=== PATIENT | female | born 1940 | race Caucasian/White ===

== ENCOUNTER → 2017-08-06 | Outpatient (CLI) | payer OTHER ==
[~2017-08-06] MED LIST: ACET325 PO; ASPI81CH PO; Adult Low Dose81 MG PO; CEFP200 PO; CEPH500 PO; CHOL10002 PO; CIPR500; CIPR500 PO; CIPRO500 MG PO; CYAN500 PO; Cipro500 MG PO; Coumadin5 MG PO; DOCU100; DOCU100 PO; ERGO400 PO; ERYT250 PO; FERR325 PO; FISH OIL 1,0001 EAC1 PO; FISH1000 PO; FURO20 PO; FURO40 PO; GABA100; GRALISE600 MG PO; HYDCHL25 PO; HYDR1TAB94 PO; Hydrocodone-Ap1 EA23; Inderal 20 mg T20 MG PO; K-Dur20 MEQ PO; MAGN84 PO; Macrobid 100 M100 MG PO; Mag-Tab Sr84 MG PO; NAPR500 PO; NITR100CA PO; NYSTRITC TOP; OMEP20ER PO; Omeprazole20 M1; Omeprazole20 M1 PO; POTA8; POTA8 PO; POTCHL20ER PO; Pedi-Dri 100,0060 GM TOP; SYNTHROID25 MCG PO; Synthroid25 MCG PO; TRAM50 PO; WARF6 PO; [UNRECOGNIZED DRUG - OTHER] PO
== END | disposition home or self-care (01) ==
LOC: LAB SHORT 14:21 → LAB EV 14:21
DX: N39.0 Urinary tract infection, site not specified (principal)
CPT/HCPCS: 87086

== ENCOUNTER 2017-10-03 10:26 | Day surgery (SDC) | payer OTHER ==
[~2017-10-03 10:26] MED LIST changes: -CEFP200 PO; -CYAN500 PO; -FISH OIL 1,0001 EAC1 PO; -K-Dur20 MEQ PO; -Mag-Tab Sr84 MG PO; -NYSTRITC TOP
== END 2017-10-03 11:08 | disposition home or self-care (01) ==
LOC: ORSCSDS 10:26
DX: R13.10 Dysphagia, unspecified (principal); Z53.9 Procedure and treatment not carried out, unspecified reason

== ENCOUNTER 2017-12-06 11:40 | Day surgery (SDC) | payer OTHER ==
[~2017-12-06] VITALS: Ht 177.8 cm; Wt 95.2 kg
== END 2017-12-06 13:45 | disposition home or self-care (01) ==
LOC: ORSCSDS 11:40
PROVIDERS: Internal Medicine Gastroenterology
PROC: 0D758ZZ Dilation of Esophagus, Via Natural or Artificial Opening Endoscopic (ICD-10-PCS; principal; 2017-12-06 13:15)
PROC: 0DB68ZX Excision of Stomach, Via Natural or Artificial Opening Endoscopic, Diagnostic (ICD-10-PCS; principal; 2017-12-06 13:15)
DX: R13.10 Dysphagia, unspecified (principal); K22.2 Esophageal obstruction; K22.8 Other specified diseases of esophagus; K22.4 Dyskinesia of esophagus; I10 Essential (primary) hypertension; E03.9 Hypothyroidism, unspecified; Z95.0 Presence of cardiac pacemaker; Z79.82 Long term (current) use of aspirin; Z79.899 Other long term (current) drug therapy; E66.9 Obesity, unspecified
CPT/HCPCS: 88305; 88342; C1726; J2250; J7120

== ENCOUNTER → 2018-04-09 | Outpatient (CLI) | payer OTHER ==
[2018-04-09 17:38] LABS: Source, Urine Catheter
[2018-04-09 18:38] LABS: Appearance, Urine Hazy (Clear); Bilirubin, Urine Neg (Neg); Blood, Urine 4+ (Neg); Color, Urine Yellow (P-Yellow); Glucose Qualitative, Urine Neg (Neg); Ketones, Urine Neg (Neg); Leukocyte Esterase, Urine 3+ (Neg); Nitrite, Urine Neg (Neg); Protein, Urine 3+ (Neg); Specific Gravity, Urine 1.005 (1.003-1.022); Urobilinogen, Urine NORM (Normal)
[2018-04-09 18:46] LABS: Red Blood Cells, Urine TNTC /hpf (0-2); White Blood Cells, Urine TNTC /hpf (0-5)
[2018-04-09 18:47] LABS: Bacteria Many /hpf; Squamous Epithelial Cells Few /hpf (Few)
== END | disposition home or self-care (01) ==
LOC: LAB SHORT 17:36 → LAB HH 17:36
PROVIDERS: Hospitalist
DX: Z46.6 Encounter for fitting and adjustment of urinary device (principal)
CPT/HCPCS: 81001; 87077; 87086; 87186

== ENCOUNTER 2018-05-20 11:47 | Emergency (ER) | payer OTHER ==
[~2018-05-20] VITALS: Ht 177.8 cm; Wt 95.2 kg
[~2018-05-20 11:47] MED LIST changes: +FISH OIL 1,0001 EAC1 PO
[2018-05-20 12:41] LABS: BASOPHILS ABSOLUTE AUTO 0.05 K/mm3 (0.00-0.23); BASOPHILS PERCENT AUTO 1 % (0-2); EOSINOPHILS ABSOLUTE AUTO 0.27 K/mm3 (0.00-0.68); EOSINOPHILS PERCENT AUTO 4 % (0-6); Hematocrit 41.7 % (33.0-51.0); Hemoglobin 13.7 g/dL (11.5-16.0); IMMATURE GRAN ABSOLUTE AUTO 0.01 K/mm3 (0.00-0.10); IMMATURE GRAN PERCENT AUTO 0 % (0-1); LYMPHOCYTES ABSOLUTE AUTO 1.59 K/mm3 (0.84-5.20); LYMPHOCYTES PERCENT AUTO 24 % (21-46); MONOCYTES ABSOLUTE AUTO 0.58 K/mm3 (0.16-1.47); MONOCYTES PERCENT AUTO 9 % (4-13); Mean Corpuscular HGB 29.8 pg (26.0-34.0); Mean Corpuscular HGB Conc 32.9 g/dL (31.5-36.5); Mean Corpuscular Volume 91 fL (80-100); NEUTROPHILS ABSOLUTE AUTO 4.21 K/mm3 (1.96-9.15); NEUTROPHILS PERCENT AUTO 63 % (41-73); Platelet Count 277 K/mm3 (150-400); RDW Standard Deviation 46.5 fL (35.1-46.3); White Blood Cell Count 6.71 K/mm3 (4.00-11.30)
[2018-05-20 12:55] LABS: Alanine Aminotransfer (ALT/SGP 16 U/L (12-78); Albumin, Blood 2.6 g/dL (3.4-5.0); Albumin/Globulin Ratio 0.6 (0.8-1.8); Alk Phos 97 U/L (50-136); Anion Gap 6 mmol/L (6-16); Aspartate Aminotrans (AST/SGOT 31 U/L (12-37); Bilirubin, Total 0.9 mg/dL (0.1-1.0); Blood Urea Nitrogen 8 mg/dL (8-24); Bun/Creatinine Ratio 12.4 (12.0-20.0); CO2, Blood 30 mmol/L (21-32); Calcium, Blood 8.5 mg/dL (8.5-10.1); Chloride, Blood 102 mmol/L (98-108); Creatinine, Blood 0.65 mg/dL (0.40-1.00); Globulin, Blood 4.1 g/dL (2.2-4.0); Glomerular Filtration Rate >60 (60-); Glucose, Blood 111 mg/dL (70-99); Potassium, Blood 2.9 mmol/L (3.5-5.5); Sodium, Blood 138 mmol/L (136-145); Total Protein, Blood 6.7 g/dL (6.4-8.2)
[2018-05-20 13:29] LABS: Source, Urine Catheter
[2018-05-20 14:01] LABS: Bilirubin, Urine Neg (Neg); Blood, Urine 5+ (Neg); Glucose Qualitative, Urine Neg (Neg); Ketones, Urine Neg (Neg); Leukocyte Esterase, Urine 3+ (Neg); Nitrite, Urine Pos (Neg); Protein, Urine 2+ (Neg); Specific Gravity, Urine 1.015 (1.003-1.022); Urobilinogen, Urine 1+ (Normal); pH, Urine 6.5 (5.0-8.0)
[2018-05-20 14:22] LABS: Appearance, Urine Turbid (Clear); Color, Urine Yellow (P-Yellow)
[2018-05-20 14:23] LABS: Bacteria Many /hpf; Squamous Epithelial Cells Many /hpf (Few); White Blood Cells, Urine 50-100 /hpf (0-5)
[2018-05-20] MEDS ORDERED: K-Dur20 MEQ PO (15:57)
[2018-05-20] MEDS ORDERED: CEFP200 PO (15:57)
[2018-05-21] MEDS ORDERED: HYDR1TAB94 PO (16:03)
[2018-05-21] MEDS ORDERED: GRALISE600 MG PO (16:04)
[2018-05-21] MEDS ORDERED: Mag-Tab Sr84 MG PO (16:04)
[2018-05-21] MEDS ORDERED: NYSTRITC TOP (16:05)
[2018-05-21] MEDS ORDERED: CYAN500 PO (16:05)
== END 2018-05-20 18:30 | disposition home or self-care (01) ==
LOC: ER 11:47
PROVIDERS: Emergency Medicine
DX: N39.0 Urinary tract infection, site not specified (principal); E87.6 Hypokalemia; E86.0 Dehydration; I95.9 Hypotension, unspecified; Z66 Do not resuscitate; Z88.8 Allergy status to other drugs, medicaments and biological substances; Z79.899 Other long term (current) drug therapy; Z79.891 Long term (current) use of opiate analgesic; Z79.82 Long term (current) use of aspirin
CPT/HCPCS: 36415; 51702; 80053; 81001; 83605; 85025; 87086; 96361; 96365; 96366; 99283-25; J0696; J7030

== ENCOUNTER → 2018-08-27 | Outpatient (CLI) | payer OTHER ==
[~2018-08-27] MED LIST changes: +CEFP200 PO; +CYAN500 PO; +K-Dur20 MEQ PO; +Mag-Tab Sr84 MG PO; +NYSTRITC TOP
== END | disposition home or self-care (01) ==
LOC: LAB SHORT 12:41 → LAB EV 12:41
DX: L03.114 Cellulitis of left upper limb (principal)
CPT/HCPCS: 87070; 87077; 87147; 87186; 87205

== ENCOUNTER → 2018-11-14 | Outpatient (CLI) | payer OTHER ==
[~2018-11-14] MED LIST changes: +ACET500 PT; +ASPI81CH PT; +ATOR10 PT; -CYAN500 PO; +CYAN500 PT; -DOCU100 PO; +DOCU100 PT; -ERGO400 PO; +ERGO400 PT; +FERSU300 PT; +FURO40 PT; +GRALISE600 MG PT; +HYDR1TAB94 PT; -Inderal 20 mg T20 MG PO; +Inderal 20 mg T20 MG PT; +LORA.5 PT; +Magnesium30 MG PT; +Omeprazole20 M1 PT; +POTA8 PT; -SYNTHROID25 MCG PO; +SYNTHROID25 MCG PT
== END ==
LOC: LAB EV 14:59 → LAB SHORT 14:59
DX: I82.622 Acute embolism and thrombosis of deep veins of left upper extremity (principal)
CPT/HCPCS: 87070; 87075; 87077; 87147; 87186; 87205

== ENCOUNTER 2019-01-30 20:27 | Inpatient (IN) | payer OTHER ==
[~2019-01-30] VITALS: Ht 175.3 cm; Wt 84.6 kg
[~2019-01-30 20:27] MED LIST changes: -ACET500 PT; -ASPI81CH PT; -ATOR10 PT; -FERSU300 PT; -LORA.5 PT; -Magnesium30 MG PT
[2019-01-30 20:47] LABS: Source, Urine Clean Catch
[2019-01-30 20:55] LABS: Appearance, Urine Cloudy (Clear); Blood, Urine 3+ (Neg); Color, Urine Amber (P-Yellow); Glucose Qualitative, Urine Neg (Neg); Ketones, Urine 1+ (Neg); Leukocyte Esterase, Urine 3+ (Neg); Nitrite, Urine Neg (Neg); Protein, Urine 3+ (Neg); Urobilinogen, Urine 2+ (Normal)
[2019-01-30 21:03] LABS: Bilirubin, Urine 1+ (Neg)
[2019-01-30 21:07] LABS: White Blood Cells, Urine 25-50 /hpf (0-5)
[2019-01-30 21:12] LABS: Amorphous Mod (0-Heavy); Bacteria Many /hpf; Squamous Epithelial Cells Few /hpf (Few)
[2019-01-30 21:36] LABS: BASOPHILS ABSOLUTE AUTO 0.01 K/mm3 (0.00-0.23); BASOPHILS PERCENT AUTO 0 % (0-2); EOSINOPHILS PERCENT AUTO 0 % (0-6); Hematocrit 32.1 % (33.0-51.0); Hemoglobin 11.2 g/dL (11.5-16.0); IMMATURE GRAN ABSOLUTE AUTO 0.04 K/mm3 (0.00-0.10); IMMATURE GRAN PERCENT AUTO 0 % (0-1); LYMPHOCYTES ABSOLUTE AUTO 1.44 K/mm3 (0.84-5.20); LYMPHOCYTES PERCENT AUTO 11 % (21-46); MONOCYTES ABSOLUTE AUTO 0.84 K/mm3 (0.16-1.47); MONOCYTES PERCENT AUTO 7 % (4-13); Mean Corpuscular HGB 32.7 pg (26.0-34.0); Mean Corpuscular HGB Conc 34.9 g/dL (31.5-36.5); Mean Corpuscular Volume 94 fL (80-100); NEUTROPHILS ABSOLUTE AUTO 10.57 K/mm3 (1.96-9.15); NEUTROPHILS PERCENT AUTO 82 % (41-73); Platelet Count 392 K/mm3 (150-400); RDW Coefficient Variation 16.1 % (11.7-14.2); RDW Standard Deviation 54.5 fL (35.1-46.3); Red Blood Cell Count 3.43 M/mm3 (3.80-5.20)
[2019-01-30 21:56] LABS: Alanine Aminotransfer (ALT/SGP 32 U/L (12-78); Albumin, Blood 2.2 g/dL (3.4-5.0); Albumin/Globulin Ratio 0.6 (0.8-1.8); Alk Phos 132 U/L (50-136); Anion Gap 12 mmol/L (6-16); Aspartate Aminotrans (AST/SGOT 44 U/L (12-37); Blood Urea Nitrogen 18 mg/dL (8-24); CO2, Blood 29 mmol/L (21-32); Calcium, Blood 8.1 mg/dL (8.5-10.1); Chloride, Blood 96 mmol/L (98-108); Creatinine, Blood 0.49 mg/dL (0.40-1.00); Globulin, Blood 3.5 g/dL (2.2-4.0); Glomerular Filtration Rate >60 (60-); Glucose, Blood 121 mg/dL (70-99); Potassium, Blood 2.9 mmol/L (3.5-5.5); Sodium, Blood 137 mmol/L (136-145); Total Protein, Blood 5.7 g/dL (6.4-8.2)
[2019-01-31 05:30] LABS: BASOPHILS ABSOLUTE AUTO 0.02 K/mm3 (0.00-0.23); BASOPHILS PERCENT AUTO 0 % (0-2); EOSINOPHILS PERCENT AUTO 0 % (0-6); Hematocrit 31.4 % (33.0-51.0); Hemoglobin 10.8 g/dL (11.5-16.0); IMMATURE GRAN ABSOLUTE AUTO 0.09 K/mm3 (0.00-0.10); IMMATURE GRAN PERCENT AUTO 1 % (0-1); LYMPHOCYTES ABSOLUTE AUTO 1.38 K/mm3 (0.84-5.20); LYMPHOCYTES PERCENT AUTO 9 % (21-46); MONOCYTES ABSOLUTE AUTO 0.88 K/mm3 (0.16-1.47); MONOCYTES PERCENT AUTO 6 % (4-13); Mean Corpuscular HGB 32.9 pg (26.0-34.0); Mean Corpuscular HGB Conc 34.4 g/dL (31.5-36.5); Mean Corpuscular Volume 96 fL (80-100); Mean Platelet Volume 10.3 fL (9.1-12.4); NEUTROPHILS ABSOLUTE AUTO 12.54 K/mm3 (1.96-9.15); NEUTROPHILS PERCENT AUTO 84 % (41-73); Platelet Count 348 K/mm3 (150-400); RDW Coefficient Variation 16.2 % (11.7-14.2); RDW Standard Deviation 57.4 fL (35.1-46.3); Red Blood Cell Count 3.28 M/mm3 (3.80-5.20); White Blood Cell Count 14.91 K/mm3 (4.00-11.30)
--- NOTE | 2019-01-31 05:59 | NUR ---
SHIFT SUMMARY PT NEW ED ADMIT THIS EVENING. UTI PRESENT. PT CAME UP WITH CHRONIC MERCER CATHETER. URINE VERY DARK, CLOUDY, AND FOUL SMELLING. OLD CATHETER PULLED AND NEW ONE INSERTED WITH SOME DIFFICULTY, VP MARKETING SERVICES AND SKIN JUANITO JOHNS INSERTED 18 SLOVAK MERCER CATHETER. VERY LITTLE OUTPUT. BLADDER SCAN READING 15 ML. SPOKE WITH PT'S SON NANDA ON THE PHONE. HE EXPLAINED THAT THIS WAS NORMAL FOR PT. FLUSHED MERCER OUT MULTIPLE TIMES WELL TO ENSURE IT WASN'T CLOGGED UP. SOME CLOTS OUT IN URINE WELL. PT'S SPEECH NONSENSICAL AT TIMES. OTHER TIMES PT ABLE TO ANSWER SIMPLE QUESTIONS APPROPRIATELY. PT'S SON REPORTED THAT THIS HAS BEEN GOING ON FOR SEVERAL WEEKS AND THAT SHE HAS BEEN DECLINING OVER THE COURSE OF THIS TIME. PT'S COCCYX EXCORIATED, TWO SMALL OPEN SORES ON EACH SIDE OF BUTTUCKS. PICTURES TAKEN AND PLACED IN CHART. BRUISING ON LEFT LABIA MAJORA. SON REPORTS HE BELIEVES THIS IS FROM DOGS JUMPING ON PT. PT DENIES PAIN WHEN ASKED. HOWEVER PT MOANS FREQUENTLY FOR UNKNOWN REASON. PT DID NOT SLEEP WELL THIS EVENING. VSS. WILL CONTINUE TO MONITOR AND REPORT TO DAY RN.
[2019-01-31 06:05] LABS: Anion Gap 11 mmol/L (6-16); Blood Urea Nitrogen 16 mg/dL (8-24); Bun/Creatinine Ratio 39.3 (12.0-20.0); CO2, Blood 25 mmol/L (21-32); Chloride, Blood 102 mmol/L (98-108); Creatinine, Blood 0.41 mg/dL (0.40-1.00); Glomerular Filtration Rate >60 (60-); Glucose, Blood 117 mg/dL (70-99); Potassium, Blood 3.7 mmol/L (3.5-5.5); Sodium, Blood 138 mmol/L (136-145)
--- NOTE | 2019-01-31 16:37 | NUR ---
PT IS AWAKE ORIENTED TO SELF, THE PT TRIES TO RESPOND VERBALY TO SOME SIMPLE QUESTIONS, HOWEVER SHE IS HARD TO UNDERSTAND, THE PT MOANS CONTINUOSLY, THE PT WAS MEDICATED FOR PAIN X1 TODAY WITH TYLENOL PER RECTUM, THE PT SCRATHCHS AT HER THROAT CONTINUOSLY AND AT ONE TIME TODAY REPORTED TO THE PLUCK SEPARATOR VERBALY THAT SHE HAD PAIN IN HER THROAT, A CALL WAS MADE TO DR. TORO AND AN US WAS ORDERED AND PERFORMED, ATTEMPTS WERE MADE T/O THE DAY TO FEED AND OFFER LIQUIDS TO THE PT, HOWEVER SHE PUSHED ALL ATTEMPTS AWAY, SHE ALSO DECLINED ALL ORAL MEDICATION, THE PT APPEARS TO BE BREATHING EASILY ON RA AT THIS TIME, CALL LIGHT IN REACH, WILL CONTINUE TO MONITOR AND ASSESS FOR CHANGES
[2019-02-01 04:33] LABS: BASOPHILS ABSOLUTE AUTO 0.01 K/mm3 (0.00-0.23); BASOPHILS PERCENT AUTO 0 % (0-2); EOSINOPHILS ABSOLUTE AUTO 0.01 K/mm3 (0.00-0.68); EOSINOPHILS PERCENT AUTO 0 % (0-6); Hematocrit 30.8 % (33.0-51.0); Hemoglobin 10.7 g/dL (11.5-16.0); IMMATURE GRAN ABSOLUTE AUTO 0.06 K/mm3 (0.00-0.10); IMMATURE GRAN PERCENT AUTO 1 % (0-1); LYMPHOCYTES ABSOLUTE AUTO 1.68 K/mm3 (0.84-5.20); LYMPHOCYTES PERCENT AUTO 13 % (21-46); MONOCYTES PERCENT AUTO 5 % (4-13); Mean Corpuscular HGB 33.1 pg (26.0-34.0); Mean Corpuscular HGB Conc 34.7 g/dL (31.5-36.5); Mean Corpuscular Volume 95 fL (80-100); Mean Platelet Volume 10.1 fL (9.1-12.4); NEUTROPHILS ABSOLUTE AUTO 10.47 K/mm3 (1.96-9.15); NEUTROPHILS PERCENT AUTO 81 % (41-73); NRBC ABSOLUTE 0.02 K/mm3 (0.00-0.02); NRBC Auto 0.2 /100 WBC (0.0-0.2); Platelet Count 305 K/mm3 (150-400); RDW Coefficient Variation 16.7 % (11.7-14.2); RDW Standard Deviation 58.4 fL (35.1-46.3); Red Blood Cell Count 3.23 M/mm3 (3.80-5.20); White Blood Cell Count 12.93 K/mm3 (4.00-11.30)
[2019-02-01 04:59] LABS: Anion Gap 11 mmol/L (6-16); Blood Urea Nitrogen 15 mg/dL (8-24); Bun/Creatinine Ratio 35.3 (12.0-20.0); CO2, Blood 22 mmol/L (21-32); Calcium, Blood 7.9 mg/dL (8.5-10.1); Chloride, Blood 111 mmol/L (98-108); Creatinine, Blood 0.43 mg/dL (0.40-1.00); Glomerular Filtration Rate >60 (60-); Glucose, Blood 86 mg/dL (70-99); Phosphorus, Blood 1.6 mg/dL (2.5-4.9); Potassium, Blood 4.1 mmol/L (3.5-5.5); Sodium, Blood 144 mmol/L (136-145)
--- NOTE | 2019-02-01 06:46 | NUR ---
SHIFT SUMMARY PT IS A 78 Y/O FEMALE, CURRENTLY NONVERBAL THOUGH ABLE TO ANSWER YES OR NO QUESTIONS. PT WOULD MOAN THROUGH THE NIGHT, THOUGH SHE DENIED ANY PAIN WHEN ASKED. NO COMPLAINTS OR S/S OF SOB OR ACUTE DISTRESS. DURING AM VITALS, PT'S HEART RATE APPEARED TO SPIKE UP TO THE 200S FOR A FEW MOMENTS THREE TIMES WHILE ON MONITOR. AN EKG WAS PERFORMED, THE FIRST OF WHICH READ ACCELERATED JUNCTIONAL RHYTHM WITH FREQUENT PVCS, AND A SECOND ATTEMPT WHICH SHOWED NSR WITH A FIRST DEGREE AV BLOCK. THE HOSPITALIST DR RAMIREZ WAS CONSULTED, AND A TELE MONITOR WAS PLACED. NO ACUTE CHANGES NOTED SINCE THEN. PT IS REFUSING ALL PO INTAKE, INCLUDING PILLS. [facility] ONTINUE TO MONITOR AND TREAT PER EMAR UNTIL HAND OFF TO DAY SHIFT RN.
--- NOTE | 2019-02-01 19:00 | NUR ---
PT IS ALERT ORIENTED TO SELF ONLY. TODAY THE PT APPEARED WEAKER COMPARED TO YESTERDAY, THE PT CONTINUES TO REFUSE ANY PO INTAKE, AN ATTEMPT TO GIVE THE PT ORAL MEDICATIONDS WAS MADE THIS AM AND THE PT WAS UNABLE TO SWALLOW THE MEDICATION WAS SUCTIONED OUT MOUTH CARE WAS PERFORMED ON THE PT, DR. TORO WAS NOTIFIED THAT THE PT WAS UNABLE TO SWALLOW, AND A SWALLOW EVAL ORDER WAS PLACED, THIS AFTERNOON THE PTS SBP WAS RECORDED AT 86, DR. TORO WAS CALLED AND AN ORDER FOR A 500CC NS BOLUS WAS ORDERED AND GIVEN, CALL LIGHT IN REACH
[2019-02-02 04:47] LABS: BASOPHILS ABSOLUTE AUTO 0.01 K/mm3 (0.00-0.23); BASOPHILS PERCENT AUTO 0 % (0-2); EOSINOPHILS ABSOLUTE AUTO 0.01 K/mm3 (0.00-0.68); EOSINOPHILS PERCENT AUTO 0 % (0-6); Hematocrit 29.5 % (33.0-51.0); Hemoglobin 9.9 g/dL (11.5-16.0); IMMATURE GRAN ABSOLUTE AUTO 0.07 K/mm3 (0.00-0.10); IMMATURE GRAN PERCENT AUTO 1 % (0-1); LYMPHOCYTES ABSOLUTE AUTO 1.25 K/mm3 (0.84-5.20); LYMPHOCYTES PERCENT AUTO 13 % (21-46); MONOCYTES ABSOLUTE AUTO 0.52 K/mm3 (0.16-1.47); MONOCYTES PERCENT AUTO 5 % (4-13); Mean Corpuscular HGB 32.7 pg (26.0-34.0); Mean Corpuscular HGB Conc 33.6 g/dL (31.5-36.5); Mean Corpuscular Volume 97 fL (80-100); Mean Platelet Volume 10.1 fL (9.1-12.4); NEUTROPHILS ABSOLUTE AUTO 7.94 K/mm3 (1.96-9.15); NEUTROPHILS PERCENT AUTO 81 % (41-73); NRBC ABSOLUTE 0.03 K/mm3 (0.00-0.02); NRBC Auto 0.3 /100 WBC (0.0-0.2); Platelet Count 327 K/mm3 (150-400); RDW Coefficient Variation 17.2 % (11.7-14.2); Red Blood Cell Count 3.03 M/mm3 (3.80-5.20)
[2019-02-02 05:08] LABS: Anion Gap 11 mmol/L (6-16); Blood Urea Nitrogen 15 mg/dL (8-24); CO2, Blood 20 mmol/L (21-32); Calcium, Blood 7.9 mg/dL (8.5-10.1); Chloride, Blood 118 mmol/L (98-108); Creatinine, Blood 0.42 mg/dL (0.40-1.00); Glomerular Filtration Rate >60 (60-); Glucose, Blood 89 mg/dL (70-99); Magnesium, Blood 1.7 mg/dL (1.6-2.4); Phosphorus, Blood 1.5 mg/dL (2.5-4.9); Potassium, Blood 4.3 mmol/L (3.5-5.5); Sodium, Blood 149 mmol/L (136-145)
--- NOTE | 2019-02-02 05:59 | NUR ---
SHIFT SUMMARY PT IS A 78 Y/O FEMALE, ADMITTED FOR UTI. SHE IS NONVERBAL, THOUGH SHE WILL ANSWER YES OR NOT QUESTIONS BY SHAKING HER HEAD, OTHERWISE PT MOANS FREQUENTLY. WHEN ASKED, SHE DENIED ANY PAIN OR DISCOMFORT. PT'S BP WAS LOW IN THE 90S SYSTOLICALLY DURING THE NIGHT. PER TELE, PT'S HEART RATE REMAINED STABLE AT ST IN THE 100S WITH FREQUENT PVCS AND A FDB. PT IS STILL REFUSING ALL ORAL INTAKE AND MEDICATIONS. SHE RECEIVED CONTINUOUS FLUIDS, NS + 20 MEQ K. NO OTHER ACUTE CHANGES IN PT CONDITION NOTED WILL CONTINUE TO MONITOR AND TREAT PER EMAR UNTIL HAND OFF TO DAY SHIFT RN.
--- NOTE | 2019-02-02 19:35 | NUR ---
SHIFT SUMMARY: NO ACUTE CHANGES TO REPORT THIS SHIFT. PT DROWSY; CALM AND COOPERATIVE WITH CARE. NPO R/T FAILED SWALLOW EVAL. MEDICATED FOR PAIN PER EMAR. TELE IN PLACE; SR c PVCs @ 80S-90S PER POULTRY HATCHERY LABORER. MERCER IN PLACE; PATENT AND DRAINING TEA-COLORED URINE. FLUID REHYDRATION & IV ABX CONTINUING. REPORT GIVEN TO ONCOMING RN.
--- NOTE | 2019-02-03 00:33 | NUR ---
02/02/191999 PT NON REPONSIVE AND ONLY OPENS EYES SLIGHTLY TO LOUD VOICE OR PAINFUL STIMULI, ORAL CARE DONE AND ALL ORAL MEDICATIONS HELD; MERCER HAS DARK TEA COLORED URINE NOTED WITH MINIMAL OUTPUT NOTED--25ML.
--- NOTE | 2019-02-03 03:57 | NUR ---
SHIFT SUMMARY: 78 Y/O FEMALE IS DNR, NON RESPONSIVE ALL SHIFT WITH OCCASIONAL MOANS NOTED WITH ROXANOL 20MG SL GIVEN X 1 WITH BETTER REST NOTED AFTERWARDS, MERCER HAD VERY POOR OUTPUT ALL SHIFT (50ML DARK TEA COLORED NOTED), BARELY OPENS EYES TO PAINFUL STIMULI, ALL NIGHT MEDICATIONS WERE HELD, ORAL CARE PERFORMED TURNED Q2H BY STAFF, TELEMETRY REFLECTS SINUS TACHYCARDIA WITH PVC AND BUNDLE BRANCH BLOCK, PTS LEFT ARM HAS +3 EDEMA NOTED AFTER IV WENT BAD AT CHANGE SHIFT LAST NIGHT (ARM ELEVATED ON PILLOW, EDEMA FROM HAND TO UPPER ARM NOTED), BED ALARM APPLIED, BED LOW POSITION WITH CALL LIGHT AT SIDE.
[2019-02-03 04:09] LABS: BASOPHILS PERCENT AUTO 0 % (0-2); EOSINOPHILS ABSOLUTE AUTO 0.02 K/mm3 (0.00-0.68); EOSINOPHILS PERCENT AUTO 0 % (0-6); Hematocrit 29.2 % (33.0-51.0); Hemoglobin 9.7 g/dL (11.5-16.0); IMMATURE GRAN ABSOLUTE AUTO 0.07 K/mm3 (0.00-0.10); IMMATURE GRAN PERCENT AUTO 1 % (0-1); LYMPHOCYTES ABSOLUTE AUTO 1.55 K/mm3 (0.84-5.20); LYMPHOCYTES PERCENT AUTO 19 % (21-46); MONOCYTES PERCENT AUTO 6 % (4-13); Mean Corpuscular HGB 32.7 pg (26.0-34.0); Mean Corpuscular HGB Conc 33.2 g/dL (31.5-36.5); Mean Corpuscular Volume 98 fL (80-100); Mean Platelet Volume 9.9 fL (9.1-12.4); NEUTROPHILS ABSOLUTE AUTO 5.95 K/mm3 (1.96-9.15); NEUTROPHILS PERCENT AUTO 74 % (41-73); Platelet Count 240 K/mm3 (150-400); RDW Coefficient Variation 17.7 % (11.7-14.2); Red Blood Cell Count 2.97 M/mm3 (3.80-5.20); White Blood Cell Count 8.09 K/mm3 (4.00-11.30)
[2019-02-03 04:31] LABS: Anion Gap 7 mmol/L (6-16); Blood Urea Nitrogen 12 mg/dL (8-24); Bun/Creatinine Ratio 27.5 (12.0-20.0); CO2, Blood 20 mmol/L (21-32); Chloride, Blood 122 mmol/L (98-108); Creatinine, Blood 0.44 mg/dL (0.40-1.00); Glomerular Filtration Rate >60 (60-); Glucose, Blood 126 mg/dL (70-99); Potassium, Blood 4.3 mmol/L (3.5-5.5); Sodium, Blood 149 mmol/L (136-145)
--- NOTE | 2019-02-03 13:23 | NUR ---
Initial Visit: Palliative Care Consult for Symptom Management. Pt is resting in bed and is not verbally responsive. She does track with her eyes. Offered gentle voice and therapeutic touch by rubbing shoulder. Pt appears comfortable with no S/S of distress at this time. Spoke with bedside nurse Rosi and discussed case. Spoke with [place] Fixed Route Operator Shae and discussed case. Shae reports Dr Francois's plan to contact Pt's POA. Palliative Care will remain available.
--- NOTE | 2019-02-03 14:41 | NUR ---
SHIFT SUMMARY PT RESTING QUIETLY, WITH PILLOWS PLACED TO L BACK, STARING OUT THE WINDOW. PUPILS FIXED, WHICH DID NOT RESPOND TO LIGHT OR MOVEMENT. PT NONRESPONSIVE TO VERBAL STIMULI. VS TAKEN PER PROTOCOL; BP DECREASED, SEE CHART. BOLUS ORDERED AND GIVEN WITH ADDITIONAL MAINTENANCE FLUIDS CONTINUED. PT A LITTLE MORE RESPONSIVE, LATER IN THE AM; PT DID APPEAR TO LOOK AT DR GAGE WHEN TALKING TO HER, BUT WOULD NOT RESPOND VERBALLY OR BY MOVING HER HEAD IN RESPONSE TO QUESTIONS. PT LATER WOULD APPEAR TO LOOK AT STAFF WHEN TURNING AND REPOSITIONING, BUT WOULD NOT SHOW ANY OTHER RESPONSE. PT RESTING QUIETLY, LOOKING OUT WINDOW AGAIN, AFTER SP THERAPY LEFT AND STARTED QUIETLY MOANING. WHEN ASKED IF SHE WAS IN PAIN, PT TURNED HEAD BACK AND FORTH ONCE TO APPEAR TO ANS "NO". ALL EXTREMITIES ARE VERY SWOLLEN; 4+ EDEMA WITH TIGHT SKIN ON HANDS AND FEET. 1425 DR GAGE NOTIFIED TO UPDATE ON EDEMA AND POOR URINE OUTPUT. BLADDER SCAN DONE SHOWING 29cc AT BEST. BP STILL REMAINS LOW, SEE CHART. IVF'S TO CONTINUE PER ORDERS AT THIS. PT IS IN NO ACUTE RESPIRATORY DISTRESS TO PRESENT. APS HERE TODAY TO SEE PT AND SPOKE WITH DR GAGE BRIEFLY. SON, SHAWN BOTELLO OF [facility] CALLED TO CHECK ON PT. BRIEF UPDATE GIVEN. DR GAGE, WELL MEDICAL SURGICAL TECH INFORMED OF SON'S CALLING AND HIS NUMBER; [phone]. SON SHAWN REPORTED THAT HE IS THE EXECUTOR OF THE PT'S WILL AND HAS THAT WILL IN HIS POSSESSION. WILL CONTINUE TO MONITOR.
--- NOTE | 2019-02-03 23:52 | NUR ---
PT'S SON NANDA CALLED AT 2330 TALKED FOR ABOUT 20 MIN ABOUT HIS MOM TELLING HIM SHE DIDN'T WANT TO AND WANTED A FEEDING TUBE BACK WHEN SHE COULD TALK. THE SON FEELS THE DR IS NOT FOLLOWING PT'S WISHES AND SAYS THEY ARE WHAT THE PT WANTS, NOT HIM. HE WAS ALSO UPSET THE ADULT PROTECTIVE SERVICES CAME OUT TO HIS HOUSE TODAY TO INVESTIGATE.
[2019-02-04 05:24] LABS: BASOPHILS ABSOLUTE AUTO 0.01 K/mm3 (0.00-0.23); BASOPHILS PERCENT AUTO 0 % (0-2); EOSINOPHILS ABSOLUTE AUTO 0.15 K/mm3 (0.00-0.68); EOSINOPHILS PERCENT AUTO 1 % (0-6); Hematocrit 32.6 % (33.0-51.0); Hemoglobin 10.7 g/dL (11.5-16.0); IMMATURE GRAN ABSOLUTE AUTO 0.08 K/mm3 (0.00-0.10); IMMATURE GRAN PERCENT AUTO 1 % (0-1); LYMPHOCYTES ABSOLUTE AUTO 1.66 K/mm3 (0.84-5.20); LYMPHOCYTES PERCENT AUTO 14 % (21-46); MONOCYTES ABSOLUTE AUTO 0.64 K/mm3 (0.16-1.47); MONOCYTES PERCENT AUTO 6 % (4-13); Mean Corpuscular HGB 32.5 pg (26.0-34.0); Mean Corpuscular HGB Conc 32.8 g/dL (31.5-36.5); Mean Corpuscular Volume 99 fL (80-100); Mean Platelet Volume 9.8 fL (9.1-12.4); NEUTROPHILS ABSOLUTE AUTO 9.17 K/mm3 (1.96-9.15); NEUTROPHILS PERCENT AUTO 78 % (41-73); NRBC ABSOLUTE 0.03 K/mm3 (0.00-0.02); NRBC Auto 0.3 /100 WBC (0.0-0.2); Platelet Count 318 K/mm3 (150-400); RDW Coefficient Variation 17.7 % (11.7-14.2); RDW Standard Deviation 64.4 fL (35.1-46.3); Red Blood Cell Count 3.29 M/mm3 (3.80-5.20); White Blood Cell Count 11.71 K/mm3 (4.00-11.30)
[2019-02-04 05:43] LABS: Anion Gap 9 mmol/L (6-16); Blood Urea Nitrogen 10 mg/dL (8-24); Bun/Creatinine Ratio 21.9 (12.0-20.0); CO2, Blood 18 mmol/L (21-32); Calcium, Blood 8.3 mg/dL (8.5-10.1); Chloride, Blood 121 mmol/L (98-108); Creatinine, Blood 0.46 mg/dL (0.40-1.00); Glomerular Filtration Rate >60 (60-); Glucose, Blood 111 mg/dL (70-99); Potassium, Blood 4.7 mmol/L (3.5-5.5); Sodium, Blood 148 mmol/L (136-145)
--- NOTE | 2019-02-04 05:56 | NUR ---
SHIFT SUMMARY PT WILL LOOK AT YOU WHEN YOU CALL HER NAME AND WHEN ASKED IF SHE HURT SHE SHOOK HER HEAD NO A LITTLE BIT. NONVERBAL. ALL 4 EXTREMITIES VERY EDEMATOUS. Q2HR TURNS. VERY LITTLE URINE OUTPUT IN MERCER. ZOFRAN GIVEN FOR WHAT LOOKED LIKE DRY HEAVING. SHE WAS ABLE TO SLEEP T/O NIGHT. CALL LIGHT IN REACH.
--- NOTE | 2019-02-04 12:32 | NUR ---
Pt visit this afternoon. Pt is resting in bed upon arrival. She attempts to verbalize needs but experiences significant expressive aphasia. She denies pain at this time. Instructed Pt palliative care will visit throughout her stay. Pt appears comfortable with no S/S of distress at this time. Spoke with bedside nurse Blaine and discussed case. Palliative Care will remain available.
--- NOTE | 2019-02-04 18:03 | NUR ---
PT HAD FAMILY (GRANDSON) AT BEDSIDE TODAY. PT REQUESTED WATER TODAY, CALLED SPEECH THERAPY TO EVALUATE, PT WAS UNABLE TO SAFELY SWALLOW WATER AND REMAINS ON NPO STATUS. PT RECIEVED IV FLUIDS. PT HAS EDEMA THAT IS WEEPING. URINE IS CONCENTRATED. PTS BREATHIS IS SHALLOW AND HAS A WEAK NON-PRODUCTIVE COUGH. PT SLEPT FREQUENTLY DURING THIS SHIFT. PT HAS DIFFICULTY COMMUNICATING BUT CAN NOD OR SHAKE HER HEAD IN RESPONSE TO QUESTIONS, SHE CAN VERBALLY SAY "NO".
--- NOTE | 2019-02-04 22:55 | NUR ---
URINE OUTPUT PT HAVING VERY LITTLE URINE OUTPUT, <50 ML IN 4 HOURS. ASSESSED CATH PLACEMENT, WHICH IS IN CORRECT PLACEMENT. FLUSHED CATH IN CASE OF OCCLUSION OR SEDIMENT, FLUSHED WELL. BLADDER SCAN IS 0 ML.
[2019-02-05 05:06] LABS: BASOPHILS ABSOLUTE AUTO 0.01 K/mm3 (0.00-0.23); BASOPHILS PERCENT AUTO 0 % (0-2); EOSINOPHILS ABSOLUTE AUTO 0.07 K/mm3 (0.00-0.68); EOSINOPHILS PERCENT AUTO 1 % (0-6); Hematocrit 33.9 % (33.0-51.0); Hemoglobin 10.9 g/dL (11.5-16.0); IMMATURE GRAN ABSOLUTE AUTO 0.09 K/mm3 (0.00-0.10); IMMATURE GRAN PERCENT AUTO 1 % (0-1); LYMPHOCYTES ABSOLUTE AUTO 1.38 K/mm3 (0.84-5.20); LYMPHOCYTES PERCENT AUTO 10 % (21-46); MONOCYTES ABSOLUTE AUTO 0.59 K/mm3 (0.16-1.47); MONOCYTES PERCENT AUTO 4 % (4-13); Mean Corpuscular HGB 32.7 pg (26.0-34.0); Mean Corpuscular HGB Conc 32.2 g/dL (31.5-36.5); Mean Corpuscular Volume 102 fL (80-100); NEUTROPHILS ABSOLUTE AUTO 11.67 K/mm3 (1.96-9.15); NEUTROPHILS PERCENT AUTO 84 % (41-73); Platelet Count 296 K/mm3 (150-400); RDW Standard Deviation 67.9 fL (35.1-46.3); Red Blood Cell Count 3.33 M/mm3 (3.80-5.20); White Blood Cell Count 13.81 K/mm3 (4.00-11.30)
[2019-02-05 05:25] LABS: Anion Gap 8 mmol/L (6-16); Blood Urea Nitrogen 11 mg/dL (8-24); Bun/Creatinine Ratio 23.7 (12.0-20.0); CO2, Blood 20 mmol/L (21-32); Calcium, Blood 8.2 mg/dL (8.5-10.1); Chloride, Blood 118 mmol/L (98-108); Creatinine, Blood 0.46 mg/dL (0.40-1.00); Glomerular Filtration Rate >60 (60-); Glucose, Blood 155 mg/dL (70-99); Potassium, Blood 4.9 mmol/L (3.5-5.5); Sodium, Blood 146 mmol/L (136-145)
--- NOTE | 2019-02-05 06:10 | NUR ---
SHIFT SUMMARY PT IS ONLY ALERT TO VERBAL STIMULI, WILL SHAKE/NOD HEAD SOME TIMES BUT NOT ALWAYS. NONVERBAL. EXTREMITIES ARE FLACCID, WEAK STRENGTH FIELD SOFTWARE ENGINEER NOTED. LS DIM, RESP SHALLOW, TOLERATING RA. MERCER CATH IN PLACE, URINE OUTPUT VERY LOW, LESS ROUGHLY 100 ML OUT THIS SHIFT. PT IS 3RD SPACING, EDEMATOUS T/O, SKIN LEAKING AND REQUIRES FREQUENT LINEN CHANGE. CLINIMIX RUNNING @ 75 ML/HR X1 BAG. SUCTIONING COMPLETED FREQUENTLY FOR EXCESSIVE ORAL SECRETIONS, THICK/TENACIOUS YELLOW SPUTUM. PT UNABLE TO COUGH TO CLEAR OWN SECRETIONS. PT SHAKES HEAD NO WHEN ASKED ABOUT PAIN OR DISCOMFORT. TRACKING WITH EYES. NANDA, SON, CALLED TO SPEAK WITHT THIS RN, HOWEVER, WHEN RETURNED CALL THERE WAS NO ANSWER. WILL CONT TO MONITOR AND PROVIDE CARE UNTIL PRESUMED BY ONCOMING RN.
--- NOTE | 2019-02-05 09:41 | NUR ---
PATIENT DID NOT EAT BREAKFAST THIS SHIFT DUE TO BEING NPO AT THTIS TIME.
--- NOTE | 2019-02-05 11:00 | NUR ---
Pt visit this AM. Pt resting in bed and is a little more verbal today. Difficult to understand speech but on occasion can redirect her to responding with yes and no. When ask if she is experiencing pain Pt states yes. Unable to communicate where her pain is. Attempted to discuss goals of care with Pt but verbal responses are difficult to understand. Reported to bedside nurse Blaine regarding pain, discussed case, and plan for CT. Palliative Care will remain available.
--- NOTE | 2019-02-05 11:10 | NUR ---
Late Entry from previous visit note. Significant third spacing noted on BUE with wheeping edema on right upper extremity.
--- NOTE | 2019-02-05 11:57 | NUR ---
YESTERDAY PT HAD SPEECH THERAPY EVALUATE AND IT WAS DETERMINED THAT SHE WAS UNSAFE TO SWALLOW SO SHE REMAINES NPO STATUS. YESTERDAY DR. GAGE DISCUSSED WITH THE PT HER WISHES REGARDING HER CARE. SHE SHOOK HER HEAD "NO" WHEN ASKED IF SHE WANTED TO BE FEED PER NG, OR GASTRIC TUBE. SHE ALSO SHOOK HER HEAD "NO" WHEN ASKED ABOUT HOSPICE CARE. DR. GAGE EXPLAINED TO HER THAT WE WILL NEED TO MAKE A DECISION ABOUT HOSPICE OR ALTERNATE BILINGUAL ACCOUNT MANAGER NUTRITION, HE EXPLAINED THAT WE CAN PROVIDE SOME NUTRITION VIA THE IV BUT THIS WOULD ONLY BE A TEMPORARY SITUATION, PTS GRANDSON WAS AT THE BEDSIDE DURING THIS DISCUSSION. THIS MORNING THE PT HAS BEEN MORE VERBAL, BUT IS STILL DIFFICULT TO UNDERSTAND. THE PTS ARMS HAVE DEEP PITTING, WEEPING EDEMA AND ARE COOL TO THE TOUCH. HER FEET ALSO HAVE DEEP PITTING EDEMA. HER URINE OUTPUT IS LOW AND THE COLOR IS JOES. TODAY I SPOKE WITH DR. GAGE ABOUT THE PLAN FOR THIS PT MOVING FORWARD. WE DISCUSSED HER FLUID STATUS AND NUTRITION STATUS. PT IS RECIEVING CLINIMIX AT THIS TIME AND WILL TRANSITION TO TPN NUTRITION. CARLO FROM [facility] VISITED THE PT TO DISCUSS HER WISHES. ICU NURSE ATTEMPTED PICC LINE AND WAS NOT SUCCESSFUL, DR. GAGE WAS NOTIFIED.
--- NOTE | 2019-02-05 12:00 | NUR ---
PATIENT DID NOT EAT LUNCH THIS SHIFT DUE TO BEING NPO AT THIS TIME.
--- NOTE | 2019-02-05 15:10 | NUR ---
MRI CALLED AND REPORTED PT HAS A PACEMAKER SO THEY ARE UNABLE TO COMPLETE MRI. MESSAGE LEFT FOR DR GAGE.
--- NOTE | 2019-02-05 17:33 | NUR ---
PT WAS A LITTLE MORE VERBAL TODAY BUT WAS STILL VERY DIFFICULT TO UNDERSTAND. PT UPPER EXTREMITIES HAD DEEP EDEMA AND WERE WEEPING. DR. GAGE IN TO DISCUSS PLAN OF CARE. PT SWITCHED TO TPN. PT TO IMAGING FOR CT SCAN. NEW IV PLACED FOR CONTRAST DYE.
--- NOTE | 2019-02-05 18:06 | NUR ---
PT BACK FROM CT. PT PLACED ON AIRBED AT THIS TIME.
[2019-02-06 05:34] LABS: Magnesium, Blood 1.8 mg/dL (1.6-2.4); Phosphorus, Blood 1.5 mg/dL (2.5-4.9); Triglycerides 187 mg/dL (30-160)
--- NOTE | 2019-02-06 05:37 | NUR ---
SHIFT SUMMARY NO ACUTE CHANGES OVERNIGHT. PT CONT TO BE ALERT TO VERBAL STIMULI, OPENING EYES TO SOUND/LIGHT, TRACKING WITH EYES, AND NODDING YES/NO TO MOST QUESTIONS. WEEPING CELLULITIS OF BUE CONT TO WORSEN, FREQUENT BED CHANGES DONE. TPN RUNNING @ 96 ML/HR TO RAFFI IV. PT ABLE TO INDICATE TO THIS RN SHE IS COLD BY SHAKING HEAD YES. ALSO ABLE TO INDICATE SHE WAS NOT IN PAIN BY NODDING HEAD NO. PRN SUCTIONING FOR EXCESS SECRETIONS. MERCER CATH PATENT AND DRAINING SMALL OUTPUT OF DARK COLORED URINE. PT PRODUCED ROUGHLY 200 ML URINE DURING THIS 12-HR SHIFT. WILL CONT TO MONITOR AND PRVIDE CARE UNTIL PRESUMED BY ONCOMING RN.
--- NOTE | 2019-02-06 09:30 | NUR ---
PT NEARLY UNRESPONSIVE MOSTLY NONVERBAL. SOME MOANS AND MUMBLING INCOHEARANTLY, DENIES PIAN .H/R REG, NO MURMER NOTED. NO TEL. LUNGS CLEAR UPPER CRACKLES LOWER. ON R.A. BT 4 LAST BM TODAY. VOIDS MERCER CATH. DARK TEA COLORED FLUID IN BAG. PT LIFT PT. BED IN LOW POSITION, CALL LITE IN REACH, BED ALARM ON FOR SAFETY
--- NOTE | 2019-02-06 12:05 | NUR ---
Spoke with herminio Wall prior to Pt visit. She reports Pt has been approved for [facility] bed with [facility] and will need Pt's preference. Pt is resting in bed and appears comfortable. Pt denies pain at this time. Pt attempts to communicate verbally with little success. Difficult to understand what she is attempting to say. She is able to nod her head yes or no. Discussed her need to reside in long-term care facility. Discussed options of [facility] or [facility]. Pt turns her head side to side indicating no for [facility]. Pt nods her head up and down indicating her preference for [facility]. Repeated options to confirm preference. Pt nods her head up and down indicating [facility]. Attempted to discuss her POLST with her turning her head from side to side indicating no when asked if she is wanting only comfort measures. Discussed her inability to swallow safely and discussed option for feeding tube. Pt turns her head from side to side when asked is she would want a feeding tube. Discussed consequences of inability to swallow safely and not having a feeding tube. Pt's level of understanding is difficult to asses due to communication deficit. Instructed Pt this RN will attempt to visit with her again later today. Spoke with Dr Cortez and discussed case. Dr Cortez plans to continue current treatment through the weekend. Left message with herminio Wall of Pt's preference for [facility]. Spoke with bedside nurse Martin and discussed case. Palliative Care will remain available.
--- NOTE | 2019-02-06 17:10 | NUR ---
PT BARELY RESPONDS TODAY. VERY FEW WORDS. DOES LOOK AND TRACK WHEN IN ROOM. WEEPING EDEMA T/O UPPER EXT. PT STATES FEELS SOME BETTER TODAY. TURNING REGULARLY, NO OTHER CONCERNS AT THIS TIME. POWERGLIDE PLACED TODAY. RUNNING PPN. BED IN LOW POSITION, CALL LITE IN REACH, BED ALARM ON FOR SAFETY
--- NOTE | 2019-02-07 05:17 | NUR ---
SHIFT SUMMARY PT BECAME HYPOTENSIVE IN THE AM. MADE AWARE AND ORDERED A 500ML BOLUS. IT IS INFUSING NOW. WILL RECHECK BP AFTER IT IS DONE. PT DENIES DIZZINESS, CP, OR SOB. OTHERWISE, PT CAN RESPOND WITH BRIEF, GARBLED, ANSWERS. PT TURNED AND REPOSITIONED Q2H, NO SKIN BREAKDOWN NOTED. PT'S ARMS CONTINUE TO WEEP. NO COMPLAINTS OF PAIN FROM PT. WILL CONTINUE TO MONITOR CLOSELY.
[2019-02-07 06:01] LABS: BASOPHILS ABSOLUTE AUTO 0.01 K/mm3 (0.00-0.23); BASOPHILS PERCENT AUTO 0 % (0-2); EOSINOPHILS ABSOLUTE AUTO 0.09 K/mm3 (0.00-0.68); EOSINOPHILS PERCENT AUTO 1 % (0-6); Hematocrit 20.2 % (33.0-51.0); Hemoglobin 6.8 g/dL (11.5-16.0); IMMATURE GRAN ABSOLUTE AUTO 0.48 K/mm3 (0.00-0.10); IMMATURE GRAN PERCENT AUTO 4 % (0-1); LYMPHOCYTES ABSOLUTE AUTO 2.55 K/mm3 (0.84-5.20); LYMPHOCYTES PERCENT AUTO 20 % (21-46); MONOCYTES ABSOLUTE AUTO 0.89 K/mm3 (0.16-1.47); MONOCYTES PERCENT AUTO 7 % (4-13); Mean Corpuscular HGB 32.7 pg (26.0-34.0); Mean Corpuscular HGB Conc 33.7 g/dL (31.5-36.5); Mean Platelet Volume 11.1 fL (9.1-12.4); NEUTROPHILS ABSOLUTE AUTO 8.61 K/mm3 (1.96-9.15); NEUTROPHILS PERCENT AUTO 68 % (41-73); NRBC Auto 1.6 /100 WBC (0.0-0.2); Platelet Count 167 K/mm3 (150-400); RDW Standard Deviation 59.7 fL (35.1-46.3); Red Blood Cell Count 2.08 M/mm3 (3.80-5.20); White Blood Cell Count 12.63 K/mm3 (4.00-11.30)
[2019-02-07 06:12] LABS: Mean Corpuscular Volume 97 fL (80-100)
--- NOTE | 2019-02-07 06:19 | NUR ---
PT REMAINS HYPOTENSIVE POST 500CC BOLUS. MD MADE AWARE THAT THE HIGHEST BP WAS 98/53, THE LOWEST BP POST BOLUS WAS 78/44. DR. KILGORE ORDERED ANOTHER 500CC BOLUS DESPITE RN RAISING THE CONCERN THAT THE PT WAS 3RD SPACING. AFTER THIS RN HUNG THE PHONE UP, THE PT'S LABS CAME BACK AND THE HEMAGLOBIN IS 6.8. CALL MADE TO DR. KILGORE WHO HAS YET TO RESPOND. WILL WAIT FOR MD TO RESPOND, WILL CONTINUE MONITOR.
[2019-02-07 06:23] LABS: Alanine Aminotransfer (ALT/SGP 39 U/L (12-78); Albumin, Blood 1.8 g/dL (3.4-5.0); Albumin/Globulin Ratio 0.8 (0.8-1.8); Alk Phos 127 U/L (50-136); Anion Gap 5 mmol/L (6-16); Aspartate Aminotrans (AST/SGOT 80 U/L (12-37); Bilirubin, Total 0.4 mg/dL (0.1-1.0); Blood Urea Nitrogen 21 mg/dL (8-24); Bun/Creatinine Ratio 56.1 (12.0-20.0); CO2, Blood 24 mmol/L (21-32); Calcium, Blood 7.8 mg/dL (8.5-10.1); Chloride, Blood 111 mmol/L (98-108); Creatinine, Blood 0.37 mg/dL (0.40-1.00); Globulin, Blood 2.2 g/dL (2.2-4.0); Glomerular Filtration Rate >60 (60-); Glucose, Blood 159 mg/dL (70-99); Magnesium, Blood 1.8 mg/dL (1.6-2.4); Phosphorus, Blood 2.3 mg/dL (2.5-4.9); Potassium, Blood 4.4 mmol/L (3.5-5.5); Sodium, Blood 140 mmol/L (136-145)
--- NOTE | 2019-02-07 19:26 | NUR ---
PT. LYING QUIETLY AT THIS TIME. ROXANOL GIVEN EARLIER. PT. RECEIVED 1 UPRBC'S. SON FROM [place] HERE MOST OF THE DAY ALONG WITH SON AND INVPPILI-RD-BDK. THEY CONVINCED PT TO HAVE A UNIT OF BLOOD INFUSED SHE HAD TOLD ME AND THE CURED MEATS SUPERVISOR "NO" SHE DIDN'T WANT IT. TPN CHANGED TO CLINIMIX AND LIPIDS.
[2019-02-07 21:25] LABS: Protein, Urine Quantitative 5.4 mg/dL (0.0-11.9)
[2019-02-08 04:55] LABS: BASOPHILS PERCENT AUTO 0 % (0-2); EOSINOPHILS ABSOLUTE AUTO 0.08 K/mm3 (0.00-0.68); EOSINOPHILS PERCENT AUTO 1 % (0-6); IMMATURE GRAN ABSOLUTE AUTO 0.23 K/mm3 (0.00-0.10); IMMATURE GRAN PERCENT AUTO 2 % (0-1); LYMPHOCYTES ABSOLUTE AUTO 1.71 K/mm3 (0.84-5.20); LYMPHOCYTES PERCENT AUTO 16 % (21-46); MONOCYTES ABSOLUTE AUTO 0.71 K/mm3 (0.16-1.47); MONOCYTES PERCENT AUTO 7 % (4-13); Mean Corpuscular HGB 30.8 pg (26.0-34.0); Mean Corpuscular HGB Conc 33.5 g/dL (31.5-36.5); Mean Platelet Volume 11.7 fL (9.1-12.4); NEUTROPHILS ABSOLUTE AUTO 8.01 K/mm3 (1.96-9.15); NEUTROPHILS PERCENT AUTO 75 % (41-73); NRBC ABSOLUTE 0.12 K/mm3 (0.00-0.02); NRBC Auto 1.1 /100 WBC (0.0-0.2); Platelet Count 155 K/mm3 (150-400); RDW Coefficient Variation 17.2 % (11.7-14.2); RDW Standard Deviation 56.9 fL (35.1-46.3); RETICULOCYTE ABSOLUTE 0.0443 M/mm3 (0.0200-0.1100); RETICULOCYTE COUNT PERCENT 2.27 % (0.50-2.50); Red Blood Cell Count 1.95 M/mm3 (3.80-5.20); White Blood Cell Count 10.74 K/mm3 (4.00-11.30)
[2019-02-08 04:57] LABS: Mean Corpuscular Volume 92 fL (80-100)
[2019-02-08 04:58] LABS: Hematocrit 17.9 % (33.0-51.0)
[2019-02-08 05:17] LABS: Alanine Aminotransfer (ALT/SGP 36 U/L (12-78); Albumin, Blood 2.4 g/dL (3.4-5.0); Albumin/Globulin Ratio 1.3 (0.8-1.8); Alk Phos 113 U/L (50-136); Anion Gap 7 mmol/L (6-16); Aspartate Aminotrans (AST/SGOT 58 U/L (12-37); Bilirubin, Total 0.8 mg/dL (0.1-1.0); Blood Urea Nitrogen 21 mg/dL (8-24); Bun/Creatinine Ratio 57.5 (12.0-20.0); CO2, Blood 27 mmol/L (21-32); Calcium, Blood 7.8 mg/dL (8.5-10.1); Chloride, Blood 106 mmol/L (98-108); Creatinine, Blood 0.37 mg/dL (0.40-1.00); Globulin, Blood 1.8 g/dL (2.2-4.0); Glomerular Filtration Rate >60 (60-); Glucose, Blood 150 mg/dL (70-99); Magnesium, Blood 1.8 mg/dL (1.6-2.4); Potassium, Blood 3.4 mmol/L (3.5-5.5); Sodium, Blood 140 mmol/L (136-145); Total Protein, Blood 4.2 g/dL (6.4-8.2)
--- NOTE | 2019-02-08 06:49 | NUR ---
SHIFT SUMMARY PT SLEPT T/O NIGHT. WILL OPEN HER EYES TO VERBAL STIMULI AND CAN TRACK BUT SLEEPY. CLINIMIX INFUSING. ARMS WEEPING EDEMA. ON AIR BED. HEMATOCRIT 17.9 DR KILGORE ORDERED 1 UNIT PRBC AT 0600. WILL REPORT TO DAY RN.
[2019-02-08 06:59] LABS: Percent Saturation 85.7 % (15.0-50.0)
--- NOTE | 2019-02-08 19:03 | NUR ---
PT. RECEIVED I UPRBC'S THIS MORNING, BP HAS INCREASED T/O THE DAY. PT. DOES APPEAR TO BE LESS ENDEMATOUS TODAY. GRANDSON AND HIS IS IN ROOM. THEY LIVE IN [place]. HAS A SON NAMED YVETTE CHADWICK WHO IS HERE LOCAL BUT PRESENTLY OUT OF TOWN. N0 OTHER CHANGES THIS SHIFT.
--- NOTE | 2019-02-08 20:14 | NUR ---
1944: ASSUMED CARE OF PATIENT PT RESTING QUIETLY, IN NO APPARENT DISTRESS. FAMILY AT BEDSIDE. WARM BLANKETS GIVEN. PT RESPIRATIONS EVEN AND UNLABORED. BED LOW AND LOCKED. CALL BATRES WITHIN REACH
[2019-02-09 05:16] LABS: Hematocrit 20.7 % (33.0-51.0); Hemoglobin 7.1 g/dL (11.5-16.0)
[2019-02-09 05:43] LABS: Albumin, Blood 2.5 g/dL (3.4-5.0); Anion Gap 9 mmol/L (6-16); Blood Urea Nitrogen 21 mg/dL (8-24); Bun/Creatinine Ratio 52.4 (12.0-20.0); CO2, Blood 28 mmol/L (21-32); Chloride, Blood 105 mmol/L (98-108); Glomerular Filtration Rate >60 (60-); Glucose, Blood 138 mg/dL (70-99); Magnesium, Blood 1.8 mg/dL (1.6-2.4); Phosphorus, Blood 2.6 mg/dL (2.5-4.9); Sodium, Blood 142 mmol/L (136-145)
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
--- NOTE | 2019-02-09 17:52 | NUR ---
PATIENT MOSTLY NONVERBAL, WILL OCCASIONALLY ANSWER YES/NO QUESTIONS. GRANDLIONEL GUNDERSON AND HIS AT BEDSIDE FOR MOST OF THIS SHIFT. MENTIONED PATIENTS SON NANDA WHILE HER EYES WERE CLOSED AND HER EYES SHOT OPEN IF SHE FEARED HIM. NANDA VISITED THIS EVENING AND MADE MULTIPLE STATEMENTS THAT WE ARE "STARVING HER." ETHICS COMMITTEE CONSULTED ON THIS CASE. PATIENT HAS MULTIPLE AREAS OF BRUISING WITH NEW BRUISING TO HER R FLANK. DR. GAGE WAS SHOWN THIS DURING ROUNDS TODAY. PATIENT HAS ANASARCA AND IS WEEPING FROM BUE. POWERGLIDE TO ATIYA WNL, CLINIMIX AND LIPIDS INFUSING. FOLIC ACID AND POTASSIUM REPLACED TODAY AND 1 UNIT OF BLOOD GIVEN FOR HGB OF 7.1. PATIENT ON SPECIALTY BED THAT REPOSITIONS Q15 MINUTES. MERCER TO GRAVITY. CONSULT PLACED FOR GENERAL SURGERY TODAY FOR POSSIBLE PEG TUBE PLACEMENT. CONSULT WILL NEED CALLED IN THE AM. VSS THIS SHIFT, PATIENT REMAINS ON RA.
--- NOTE | 2019-02-09 18:28 | NUR ---
Clinical Visit: Pt is drowsy. She wakes up for small moments. Reviewed with family present. Itz, grandson, is here from out of town. He and are bedside and express concerns. During my visit with them, they received a call from Itz's dad (POAlma). Itz reports that his dad is refusing to fax POA paperwork and he states that he will "put it in the mail on Saturday," as he is busy doing other things at this time. Jaspreet, pt's son, comes to the hospital. He is very dismissive of this RN. He is stating to pt: "I finally got here, had to take the bus since nobody will bring me." Spoke with Dr. Francois. May need ethics consult to assist in management of pt with the family dysfunction and lack of POA paperwork. Pt has two POLST forms with DNR/DNI with comfort only measures. Message left for Shimon Mathur to follow up. Will remain available.
--- NOTE | 2019-02-09 20:20 | NUR ---
shift assessment completed. patient is to be moved to [facility].
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
--- NOTE | 2019-02-10 04:27 | NUR ---
PT has 3 plus edema bilat ue weeping edema both upper extremity, lt arm powerglide intact infusing. Bilat UE elevated on 2 pillows to decrease edema
--- NOTE | 2019-02-10 04:30 | NUR ---
PT was transferred from room 331 and is mostly nonverbal. PT has POLST on chart that says she is comfort measures only and no artificial feedings but has ethics consult as well as surgical consult pending to be called this AM for possible peg tube placement. PT has 3 plus weeping edema bilat ue arms elevated on 2 pillows. PT on speciality bed that turns PT side to side , PT has upper and lower extrem contractures. Social service consult to assess support system. No calls or visitors since transfer since transfer back to roomn 346, PT has remote caqmera monitoring. Any movement appears painful, then resting on pressure relieving mattress comfortably. Strict NPO oral care done.
[2019-02-10 04:51] LABS: BASOPHILS ABSOLUTE AUTO 0.01 K/mm3 (0.00-0.23); BASOPHILS PERCENT AUTO 0 % (0-2); EOSINOPHILS ABSOLUTE AUTO 0.12 K/mm3 (0.00-0.68); EOSINOPHILS PERCENT AUTO 1 % (0-6); Hemoglobin 8.6 g/dL (11.5-16.0); IMMATURE GRAN ABSOLUTE AUTO 0.15 K/mm3 (0.00-0.10); IMMATURE GRAN PERCENT AUTO 1 % (0-1); LYMPHOCYTES ABSOLUTE AUTO 1.33 K/mm3 (0.84-5.20); LYMPHOCYTES PERCENT AUTO 13 % (21-46); MONOCYTES ABSOLUTE AUTO 0.81 K/mm3 (0.16-1.47); MONOCYTES PERCENT AUTO 8 % (4-13); Mean Corpuscular HGB 31.7 pg (26.0-34.0); Mean Corpuscular HGB Conc 34.4 g/dL (31.5-36.5); Mean Corpuscular Volume 92 fL (80-100); Mean Platelet Volume 11.7 fL (9.1-12.4); NEUTROPHILS ABSOLUTE AUTO 7.95 K/mm3 (1.96-9.15); NEUTROPHILS PERCENT AUTO 77 % (41-73); NRBC ABSOLUTE 0.31 K/mm3 (0.00-0.02); Platelet Count 164 K/mm3 (150-400); RDW Coefficient Variation 16.3 % (11.7-14.2); RDW Standard Deviation 52.3 fL (35.1-46.3); Red Blood Cell Count 2.71 M/mm3 (3.80-5.20); White Blood Cell Count 10.37 K/mm3 (4.00-11.30)
[2019-02-10 05:26] LABS: Albumin, Blood 2.4 g/dL (3.4-5.0); Anion Gap 7 mmol/L (6-16); Blood Urea Nitrogen 20 mg/dL (8-24); Bun/Creatinine Ratio 59.7 (12.0-20.0); CO2, Blood 29 mmol/L (21-32); Calcium, Blood 8.3 mg/dL (8.5-10.1); Chloride, Blood 104 mmol/L (98-108); Creatinine, Blood 0.34 mg/dL (0.40-1.00); Glomerular Filtration Rate >60 (60-); Glucose, Blood 125 mg/dL (70-99); Phosphorus, Blood 2.6 mg/dL (2.5-4.9); Sodium, Blood 140 mmol/L (136-145)
--- NOTE | 2019-02-10 10:27 | NUR ---
Ethics consult order processed. Concerns expressed and discussed with Dr Aba Francois relating to the principals need for artificially administered nutrition and hydration. The two POLST forms that we have on file suggest that Lula would not want to pursue heroic or life prolonging treatment measures in the event of severely declining conditions. Unfortunately, the definitions that she would use in this respect are not fully accessible to us. Dr Francois in combination with the family have elected to proceed with a PEG tube procedure with the expectation that Lula can have it removed at a future point in her care if she attains to a certain level of recovery and capacity. We talked through the potential risks and downsides of prospectively over-treating the principal, and we discussed the ambiguous reliability of her proxy susbtitute decision makers, as well as the implications of utilizing feeding tubes with patients who have a history of CVA and suffer from Dementia. Having carefull weighed all of the factors, Dr Francois is comfortable proceeding with PEG Tube placement and enteral feeding with the possibility of a later discontinuation of treatment. He feels that she may not have fully envisioned the unfortunate conditions that she now finds herself in and that she has a fair chance of reasonable, though not complete recovery. Please see Dr Jennings thorough documentation on his interaction with the patient and her family for futher detail. Thank you for this consult. Shimon Mathur ThD
--- NOTE | 2019-02-10 11:03 | NUR ---
Pt visit this AM. Pt is resting in bed with her eyes closed upon arrival. She appears comfortable with no S/S of distress at this time. Spoke with Ethics Chair Shimon Mathur and discussed case. Spoke with Dr Francois and discussed case. Dr Francois's plan is to continue with plan for PEG-Tube placement. Pt has documented on 2 different POLSTs that she is DNR, Comfort Measures Only, and No Tube Feedings. At this point no MPOA or Health Care sales representative malt liquors documentation has been provided. Spoke with bedside nurse Lo and discussed case. Palliative Care will remain available.
--- NOTE | 2019-02-10 12:43 | NUR ---
History, Chart, Medications and Allergies reviewed before start of procedure.Patient confirms NPO status and agrees with scheduled surgery. UNABLE TO CLEARLY HEAR LUNG SOUNDS WITH THE PATIENT ATTEMPTING TO SAY WORDS THAT I AM UNABLE TO UNDERSTAND. PT DOES NOT ANSWER ANY QUESTIONS. PT POWER OF DRIED YEAST SUPERVISOR SPOKEN TO BY DR ECHEVARRIA AND DR CASIANO. REMOVED IV TO RIGHT FOREARM. AREA IS VERY WARM TO TOUCH AND BRIGHT RED. UNABLE TO TELL IF PATIENT HAD AN INFILTRATION DUE TO ALL OVER EDEMA THAT IS LEAKING FROM EXTREMITIES X 4. SPOKE TO SALOMON ESQUIVEL RN IN REGARDS TO R ARM. MARKED AFFECTED AREA WITH BLACK SHARPIE/DATED/ INITIALED.
--- NOTE | 2019-02-10 17:32 | NUR ---
Pt visit this afternoon. Pt is resting in bed and appears comfortable. Pt attempting to communicate verbaly but is only able to get partial words out. Difficult to understand what she is attempting to say. Spoke with bedside nurse Mindi and discussed case. Palliative Care will remain available.
--- NOTE | 2019-02-10 18:03 | NUR ---
Spiritual Care routine visit: Lula was alone in room post-op. She was sleeping, but opened eyes to touch. Iasked if she was in pain and it took a few moments for her to answer. She said"no" very slowly and softly. She did not speak again, but appeared to fall asleep as I stroked her forehead. I will remain available.
--- NOTE | 2019-02-10 18:18 | NUR ---
SHIFT SUMMARY PT WITH MINIMAL VERBAL RESPONSE THIS MORNING BUT DID SAY A FEW WORDS, NO COMPLETE SENTENCES. CURRENTLY ON AN AIR BED AND TURNED FREQUENTLY WITH BED. SPONGE BATH COMPLETED AND COCCYX DRESSING CHANGED. HAS REMAINED NPO TODAY. WENT TO PEG PLACEMENT PROCEDURE AT 1230 AND RETURNED AT APPROX 1415. RETURNED WITH PEG IN PLACE AND TAPED TO ABDOMEN. HOB UP TO 45 DEGREES FOR SAFETY. DID HAVE AN EPISODE OF DIFFICULTY MANAGING HER SECRETIONS AND REQUIRED ORAL SUCTIONING. AFTER FERROUS GLUCONATE INFUSED INTO RAC IV SITE BECAME RED AND WARM. ARM DIDN'T APPEAR TO BE ANY MORE EDEMATIOUS THOUGH. IV REMOVED. SITE IS NO LONGER WARM AND WAS OUTLINED TO GATOER. REDNESS APPEARS TO BE LESS THAN EARLIER TODAY. TUBE FEEDING STARTED AT 1800. WILL MONITER TOLERATION.
--- NOTE | 2019-02-11 00:54 | NUR ---
PT continues on pressure reiving bariatric bed and it is able to provide wt shifts and turns, also we are turning Q 2 hourswith 2 max assist. HOB up 45 degrees for peg tib feeding currently running at 40 ml hr. Tolerating with less than 5 ml residual on Q 4 hour checks. She is mostly nonverbal except to say oww when moved or repositioned. Continues with massive old bruising rt chest breast abd. Rt UE and RT LE contracture make positioning difficult. RT UE continues with moderate amt of weeping edema. Low cath petent drains small amts cisco urine. Clinimix and lipids infusing via lt UE powerglide which has decreased weeping and edema.
[2019-02-11 05:15] LABS: Magnesium, Blood 1.8 mg/dL (1.6-2.4)
[2019-02-11 05:17] LABS: Albumin, Blood 2.1 g/dL (3.4-5.0); Anion Gap 8 mmol/L (6-16); Blood Urea Nitrogen 21 mg/dL (8-24); Bun/Creatinine Ratio 53.8 (12.0-20.0); CO2, Blood 28 mmol/L (21-32); Calcium, Blood 7.9 mg/dL (8.5-10.1); Chloride, Blood 103 mmol/L (98-108); Creatinine, Blood 0.39 mg/dL (0.40-1.00); Glomerular Filtration Rate >60 (60-); Glucose, Blood 135 mg/dL (70-99); Phosphorus, Blood 2.7 mg/dL (2.5-4.9); Potassium, Blood 3.4 mmol/L (3.5-5.5); Sodium, Blood 139 mmol/L (136-145)
[2019-02-11 05:18] LABS: Hematocrit 24.6 % (33.0-51.0); Hemoglobin 8.2 g/dL (11.5-16.0)
--- NOTE | 2019-02-11 10:36 | NUR ---
Pt visit this AM. Pt resting in bed with her eyes closed. Pt briefly opens her eyes with verbal stimuli but does not respond any further. Pt appears comfortable with no S/S of distress at this time. Spoke with bedside nurse Lo and she reports no concerns at this time. Palliative Care will remain available.
--- NOTE | 2019-02-11 17:05 | NUR ---
Spiritual care routine visit: Lula was alone in room. Eyes open. Slow to respond. I asked her about pain. She shook head 'no'. Stay bedside her providing presence and comfort through touch/prayer. I will remain available.
--- NOTE | 2019-02-11 18:50 | NUR ---
SHIFT SUMMARY PT STARTED BOLUS FEEDINGS THIS MORNING APPROX 1115. TOLEERATED FIRST BOLUS WITH NO RESIDUAL. BEFORE 2ND FEEDING PT HAD 100ML RESIDUAL. DID MOAN OCC AFTER 2ND FEEDING OF 240 BUT DENIED HAVING ABDOMINAL PAIN OR NAUSEA. DIDN'T HAVE BURPS. HAD 50ML RESIDUAL AT EVENING FEEDING. HAD LIQUID STOOL THIS EVENING. DOZING OTHERWISE MOST OF THE DAY. PLANS FOR PT TO TRANSFER TO FACILITY.
[2019-02-12 05:08] LABS: Hemoglobin 7.6 g/dL (11.5-16.0)
[2019-02-12 05:53] LABS: Magnesium, Blood 1.9 mg/dL (1.6-2.4)
[2019-02-12 05:54] LABS: Anion Gap 8 mmol/L (6-16); Blood Urea Nitrogen 21 mg/dL (8-24); Bun/Creatinine Ratio 47.8 (12.0-20.0); CO2, Blood 29 mmol/L (21-32); Calcium, Blood 8.2 mg/dL (8.5-10.1); Chloride, Blood 101 mmol/L (98-108); Creatinine, Blood 0.44 mg/dL (0.40-1.00); Glomerular Filtration Rate >60 (60-); Glucose, Blood 133 mg/dL (70-99); Phosphorus, Blood 2.5 mg/dL (2.5-4.9); Potassium, Blood 2.9 mmol/L (3.5-5.5); Sodium, Blood 138 mmol/L (136-145)
--- NOTE | 2019-02-12 07:23 | NUR ---
SHIFT SUMMARY PT INCONT OF XLARGE LIQ STOOL X3. BOLUS TUBE FEEDING PER PEG TUBE. RESIDUALS BEEN <250 EXCEPT FOR 0620 CHECK WITH 280ML RESIDUAL. PT WAS ABLE TO SLEEP ON AND OFF T/O NIGHT BUT ALSO SOME MOANS ON AND OFF T/O NIGHT. SHE IS ABLE TO SPEAK MORE, VERY SLOW, BUT MORE UNDERSTANDABLE. SHE WILL SAY "NO" OR "IT HURTS" TO PAINFUL STIMULI.
--- NOTE | 2019-02-12 14:00 | NUR ---
PT HAS HAD >250 RESIDUALS FOR SEVERAL PREVIOUS CHECKS AND RECEIVING HER FIRST FEEDING NOW. DID REPORT DISCOMFORT, GENERALIZED, THIS MORNING. IS SPEAKING IN COMPLETE SENTENCES TODAY AND IS ABLE TO MAKE HER NEEDS KNOWN FOR THE FIRST TIME IN 3 DAYS. EYES MORE CLEAR AND FULLY OPEN WHEN TALKING TO HER.
--- NOTE | 2019-02-12 19:52 | NUR ---
SHIFT SUMMARY PT HAS BEEN MORE AWAKE THAN SHE HAS BEEN SINCE TAKING CARE OF HER. HAS HAD 2 FEEDINGS TODAY AND SO FAR HAS TOLERATED THEM. MOVING R ARM SLIGHTLY AND LESS WEEPING NOTED FROM THE SWELLING. TOLERATED BLOOD TRANSFUSION.
[2019-02-13 05:56] LABS: BASOPHILS ABSOLUTE AUTO 0.02 K/mm3 (0.00-0.23); BASOPHILS PERCENT AUTO 0 % (0-2); EOSINOPHILS ABSOLUTE AUTO 0.17 K/mm3 (0.00-0.68); EOSINOPHILS PERCENT AUTO 2 % (0-6); Hematocrit 28.3 % (33.0-51.0); Hemoglobin 9.4 g/dL (11.5-16.0); IMMATURE GRAN ABSOLUTE AUTO 0.16 K/mm3 (0.00-0.10); IMMATURE GRAN PERCENT AUTO 2 % (0-1); LYMPHOCYTES PERCENT AUTO 14 % (21-46); MONOCYTES ABSOLUTE AUTO 0.74 K/mm3 (0.16-1.47); MONOCYTES PERCENT AUTO 9 % (4-13); Mean Corpuscular HGB 30.2 pg (26.0-34.0); Mean Corpuscular HGB Conc 33.2 g/dL (31.5-36.5); Mean Corpuscular Volume 91 fL (80-100); Mean Platelet Volume 11.8 fL (9.1-12.4); NEUTROPHILS ABSOLUTE AUTO 5.75 K/mm3 (1.96-9.15); NEUTROPHILS PERCENT AUTO 72 % (41-73); NRBC ABSOLUTE 0.02 K/mm3 (0.00-0.02); NRBC Auto 0.3 /100 WBC (0.0-0.2); Platelet Count 169 K/mm3 (150-400); RDW Coefficient Variation 21.2 % (11.7-14.2); RDW Standard Deviation 62.3 fL (35.1-46.3); Red Blood Cell Count 3.11 M/mm3 (3.80-5.20); White Blood Cell Count 7.94 K/mm3 (4.00-11.30)
[2019-02-13 06:14] LABS: Albumin, Blood 2.1 g/dL (3.4-5.0); Anion Gap 5 mmol/L (6-16); Blood Urea Nitrogen 18 mg/dL (8-24); Bun/Creatinine Ratio 44.9 (12.0-20.0); CO2, Blood 33 mmol/L (21-32); Calcium, Blood 8.4 mg/dL (8.5-10.1); Chloride, Blood 100 mmol/L (98-108); Glomerular Filtration Rate >60 (60-); Glucose, Blood 119 mg/dL (70-99); Phosphorus, Blood 2.4 mg/dL (2.5-4.9); Potassium, Blood 3.5 mmol/L (3.5-5.5); Sodium, Blood 138 mmol/L (136-145); Triglycerides 77 mg/dL (30-160)
--- NOTE | 2019-02-13 06:34 | NUR ---
SHIFT SUMMARY PT ON VOCAL AND TALKING MORE. SHE CAN SAY WHAT SHE DOES AND DOES NOT WANT. WANTED THE LIGHT TO BE LEFT ON ALMOST ALL NIGHT. TOLERATING BOLUS TUBE FEEDS. RESIDUALS WERE 150-170. NO BM. MERCER DRAINING. SHE WAS ABLE TO SLEEP ON AND OFF T/O NIGHT.
--- NOTE | 2019-02-13 15:04 | NUR ---
SHIFT SUMMARY PATIENT DENIES NAUSEA AND SHORTNESS OF BREATH. PATIENT MEDICATED THIS MORNING FOR PAIN. PATIENT ABLE TO ANSWER SIMPLE QUESTIONS. PATIENT'S SPEECH IS SLOW AND HAS A DELAYED RESPONSE. PATIENT TOLERATING TUBE FEEDING WELL. PATIENT'S SON VISITED BRIEFLY AFTER LUNCH. PATIENT NAPPING MOST OF SHIFT. DISCHARGE TO SNF PENDING. CALL LIGHT IN REACH.
--- NOTE | 2019-02-14 05:28 | NUR ---
SHIFT SUMMARY: PT IS ALERT, RESPONDS TO VERBAL AND PAINFUL STIMULI, INCOMPREHENSIBLE VERBAL RESPONSE AT TIMES, WILL NOD YES OR NO WHEN ASKED QUESTIONS. PT REQUIRES A LIFT FOR TRANSFERS. PT TURNED Q2H. MERCER PATENT AND DRAINING EFRAIN URINE. PT SHOWS NO S/S FOR PAIN, NAUSEA, VOMITING, OR SOB. TUBE FEEDS AND FLUSHES GIVEN ORDERED. PT SLEPT INTERMITTENTLY THROUGHOUT THE NIGHT. NO ACUTE CHANGES OR COMPLICATIONS. WILL CONTINUE TO MONITOR.
[2019-02-14 05:34] LABS: Hematocrit 28.1 % (33.0-51.0); Hemoglobin 9.3 g/dL (11.5-16.0)
[2019-02-14 05:58] LABS: Albumin, Blood 1.9 g/dL (3.4-5.0); Anion Gap 5 mmol/L (6-16); Blood Urea Nitrogen 19 mg/dL (8-24); CO2, Blood 31 mmol/L (21-32); Calcium, Blood 8.2 mg/dL (8.5-10.1); Chloride, Blood 96 mmol/L (98-108); Glomerular Filtration Rate >60 (60-); Glucose, Blood 105 mg/dL (70-99); Phosphorus, Blood 2.9 mg/dL (2.5-4.9); Sodium, Blood 132 mmol/L (136-145)
[2019-02-14 06:36] LABS: Potassium, Blood 5.7 mmol/L (3.5-5.5)
[2019-02-14 09:14] LABS: Anion Gap 4 mmol/L (6-16); Blood Urea Nitrogen 19 mg/dL (8-24); Bun/Creatinine Ratio 62.9 (12.0-20.0); CO2, Blood 32 mmol/L (21-32); Calcium, Blood 8.3 mg/dL (8.5-10.1); Chloride, Blood 96 mmol/L (98-108); Glomerular Filtration Rate >60 (60-); Glucose, Blood 94 mg/dL (70-99); Potassium, Blood 5.7 mmol/L (3.5-5.5); Sodium, Blood 132 mmol/L (136-145)
--- NOTE | 2019-02-14 17:52 | NUR ---
Pt visit this afternoon. Pt is resting in bed upon arrival. Pt is attempting to speak and is having difficulty. She is able to give yes or no answers with ease. Pt jhonny pain at this time. Pt appears comfortable with no S/S of distress at this time. Spoke with bedside nurse Prema and discussed case. Palliative Care will remain available.
--- NOTE | 2019-02-14 18:25 | NUR ---
SHIFT SUMMARY PATIENT ALERT MOST OF DAY, CAN MAKE REQUESTS KNOWN. SHE STILL SAYS NO FOR MANY CARES BUT IS BETTER WITH EXPLANATION, REASSURANCE, AND TIME TO PROCESS, SHE HAS AN ANXIETY HX. SHE IS SLOW TO ANSWER BUT CAN SPEAK IN SENTENCES. SHE C/O PAIN ON R SIDE OF NECK IN THE MORNING BUT DENIED PAIN IN THE AFTERNOON. TUBE FEEDS TOLERATED ON SCHEDULE, LAST DAY SHIFT FEED GIVEN LATE SO RADIATION OFFICER GAVE FLUSH. MERCER DRAINING CLEAR EFRAIN URINE. PT REPOSITIONED Q2 HR.
--- NOTE | 2019-02-15 04:06 | NUR ---
SHIFT SUMMARY: PT IS ALERT, RESPONSIVE TO VERBAL AND PAINFUL STIMULI, LITTLE VERBAL RESPONSE, NO CHANGE IN MENTATION. PT REQUIRES A LIFT FOR TRANSFERS, Q2H TURNS. MERCER PATENT AND DRAINING. PT SHOWS NO S/S FOR PAIN, NAUSEA, VOMITING, OR SOB. PT TOLERATED TUBE FEEDING AND FLUSH. PT SLEPT INTERMITTENTLY THROUGHOUT THE NIGHT. AWAITING PLACEMENT. NO ACUTE CHANGES OR COMPLICATIONS THIS SHIFT. WILL CONTINUE TO MONITOR.
[2019-02-15 05:32] LABS: Hematocrit 27.2 % (33.0-51.0)
[2019-02-15 05:59] LABS: Anion Gap 9 mmol/L (6-16); Blood Urea Nitrogen 19 mg/dL (8-24); Bun/Creatinine Ratio 50.7 (12.0-20.0); CO2, Blood 32 mmol/L (21-32); Calcium, Blood 8.2 mg/dL (8.5-10.1); Chloride, Blood 94 mmol/L (98-108); Creatinine, Blood 0.38 mg/dL (0.40-1.00); Glomerular Filtration Rate >60 (60-); Glucose, Blood 116 mg/dL (70-99); Phosphorus, Blood 2.6 mg/dL (2.5-4.9); Potassium, Blood 3.5 mmol/L (3.5-5.5); Sodium, Blood 135 mmol/L (136-145)
--- NOTE | 2019-02-15 06:13 | NUR ---
PT'S BP 80/40 THIS MORNING, PT'S ALERTNESS VARIES, NO NOTABLE CHANGES IN CONDITION. INFORMED DR. INGRAM WHO INSTRUCTED TO CONTINUE MONITORING WITHOUT ADDITIONAL INTERVENTIONS AT THIS TIME.
--- NOTE | 2019-02-15 10:41 | NUR ---
0824 - HR 41, TEMP 100.9, BP 117/39 ON R LEG WITH MONITOR PATIENT VERY SLOW TO ANSWER, ONLY YES OR NO, BARELY RESPONSIVE TO PAIN DR KNOX NOTIFIED, HE STATED TO MONITOR PT, NO NEW ORDERS 1036 - HR 72, TEMP 99.6, BP 80/38 ON R FA MANUALLY SAME MENTAL STATUS EARLIER DR KNOX NOTIFIED, HE STATED TO MONITOR PATIENT, HE WOULD BE SEEING PATIENT TODAY
--- NOTE | 2019-02-15 18:30 | NUR ---
SHIFT SUMMARY SEE NOTE FROM THIS MORNING ABOUT VITALS. PT IS MORE DROWSY TODAY, LESS RESPONSIVE, OPENS EYES AND FOCUSES ON FACE WHEN SPOKEN TO. ONLY SPEAKS A WORD AT A TIME. DR KNOX ASSESSED PATIENT, SEE NEW ORDERS. FLUIDS RUNNING, LABS/CULTURES DRAWN. TOLERATING BOLUS FEEDS/FLUSHES WELL, THE HIGHEST RESIDUAL WAS 100 ML. PT HAS CHRONIC GENERALIZED EDEMA, SLIGHTLY WORSE TOWARD END OF SHIFT. AT END OF SHIFT PATIENT WAS MORE ALERT AND STATED SHE WAS COLD SO GOT A WARM BLANKET. SHE DENIED PAIN OR OTHER DISCOMFORT. PT GOT BED BATH TODAY AND PEG TUBE DRSG CHANGED. SON HARPER CALLED TO GET AN UPDATE. HE STATED HE WILL COME IN TOMORROW.
--- NOTE | 2019-02-16 02:21 | NUR ---
2030 HRS, 02/15/19,PT FED 250 ML. RESIDUAL PRIOR WAS 100 ML'S. WITH 30 ML WATER BEFORE AND AFTER. 2230 HRS, WATER FLUSH 250 ML'S.
--- NOTE | 2019-02-16 04:19 | NUR ---
SHIFT SUMMARY PT WAS FED WITHOUT ISSUE. RESIDUALS ARE <100 ML'S. PT HAS BEEN REPOSITIONED TOLERATED. PT HAS INCREASED SWELLING NOTED IN HANDS AND FEET. PT IS VERY DIFFICULT TO UNDERSTAND. IS ABLE TO ANSWER YES/ NO QUESTIONS EASILY. PT HAS BEEN SLEEPING OFF AND ON T/O SHIFT. PT CURRENTLY SLEEPING IN NO DISTRESS. CALL LIGHT IN REACH AND BED ALARM ON.
[2019-02-16 05:36] LABS: Hematocrit 27.5 % (33.0-51.0); Hemoglobin 8.9 g/dL (11.5-16.0)
[2019-02-16 05:54] LABS: Albumin, Blood 1.9 g/dL (3.4-5.0); Anion Gap 6 mmol/L (6-16); Blood Urea Nitrogen 18 mg/dL (8-24); Bun/Creatinine Ratio 49.9 (12.0-20.0); CO2, Blood 31 mmol/L (21-32); Calcium, Blood 8.1 mg/dL (8.5-10.1); Chloride, Blood 99 mmol/L (98-108); Creatinine, Blood 0.36 mg/dL (0.40-1.00); Glomerular Filtration Rate >60 (60-); Glucose, Blood 133 mg/dL (70-99); Phosphorus, Blood 2.2 mg/dL (2.5-4.9); Potassium, Blood 3.8 mmol/L (3.5-5.5); Sodium, Blood 136 mmol/L (136-145)
--- NOTE | 2019-02-16 16:00 | NUR ---
PT. RESIDUAL CHECKED BEFORE GIVING 1600 BOLUS FEED AND PT. HAD 200 RESIDUAL AND NOTED PINK IN THE RETURN. NOTIFIED DR. GONSALES AND HE SAID TO HOLD THE 1600 BOLUS. PT. AWAKE AND MOANING, WHEN ASKED IF SHE WANTED THE FEEDING TUBE SHE SAID "NO" ASKED HER ONCE AGAIN AND SHE SAID "NO" AGAIN. SAID "I JUST WANT TO GO TO SLEEP". PT. DENIES PAIN PAIN
--- NOTE | 2019-02-16 19:05 | NUR ---
PT. LYING QUIETLY STIL ABLE TO VERBALIZE HER WISHES MORE CLEARLY TODAY. ORAL CARE PERFORMED. NO OTHER NOTEABLE CHANGES THIS SHIFT.
--- NOTE | 2019-02-16 21:03 | NUR ---
2029 PATIENT REPOSITIONING. CLEANED AND RE-DRESSED WOUNDS TO COCCYX AND R GLUTEAL FOLD. PICTURES TAKEN OF SAID WOUNDS AND ECCHYMOSES TO THE UPPER BODY (BREASTS, PANNUS, R FLANK, L ARM, ETC.). NO RESIDUAL FOUND, TUBE FEEDINGS STARTED @ 2100. WCTM.
--- NOTE | 2019-02-17 04:10 | NUR ---
SHIFT SUMMARY ALERT, ANSWERS QUESTIONS APPORPIRATELY WITH SLOW SPEECH. NO C/O PAIN/DISCOMFORT. C/O BEING COLD. WOUNDS TO COCCYX AND R GLUTEAL FOLD CLEANED AND REPLACED; PICTURE DOCUMENTATION DONE. BOLUS FEEDING COMPLETED; NO RESIDUAL TO NOTE. MERCER PATENT AND DRAINING TO GRAVITY. VSS/AFEBRILE. APPEARED TO REST MUCH OF SHIFT. BED REMAINS IN LOWEST POSITION. CALL LIGHT WITHIN REACH. WCTM. REPORT TO ONCOMING RN.
[2019-02-17 05:02] LABS: Hematocrit 29.6 % (33.0-51.0); Hemoglobin 9.5 g/dL (11.5-16.0)
[2019-02-17 05:36] LABS: Albumin, Blood 1.9 g/dL (3.4-5.0); Anion Gap 5 mmol/L (6-16); Blood Urea Nitrogen 14 mg/dL (8-24); Bun/Creatinine Ratio 46.7 (12.0-20.0); CO2, Blood 30 mmol/L (21-32); Calcium, Blood 8.2 mg/dL (8.5-10.1); Chloride, Blood 103 mmol/L (98-108); Glomerular Filtration Rate >60 (60-); Glucose, Blood 101 mg/dL (70-99); Magnesium, Blood 2.1 mg/dL (1.6-2.4); Phosphorus, Blood 2.4 mg/dL (2.5-4.9); Potassium, Blood 3.7 mmol/L (3.5-5.5); Sodium, Blood 138 mmol/L (136-145)
[2019-02-17] MEDS ORDERED: LORA.5 PT (12:10)
[2019-02-17] MEDS ORDERED: ASPI81CH PT (14:58)
[2019-02-17] MEDS ORDERED: FERSU300 PT (15:01)
[2019-02-17] MEDS ORDERED: Magnesium30 MG PT (15:05)
[2019-02-17] MEDS ORDERED: ACET500 PT (15:08)
[2019-02-17] MEDS ORDERED: ATOR10 PT (15:10)
--- NOTE | 2019-02-17 15:28 | NUR ---
Pt visit this afternoon. Pt is resting in bed upon arrival. [employer] Manager Shae present during visit. Pt is requesting to stay here at the hospital. Transport arrives and does not want to take Pt against her will. Bedside nurse Fabiana is able to clarify Pt's concerns. Pt was worried about her sons not knowing where she is. Fabiana was able to rerassure Pt sons know she is going to [facility] and Pt became agreeable to leave. No other concerns reported at this time. Palliative Care will remain available.
--- NOTE | 2019-02-17 16:00 | NUR ---
PT. TRANSFERREED TO [facility] VIA [facility]. REFUSED TO GO UNTIL SHE KNEW HER SONS WOULD KNOW WHERE SHE WAS. PEG TUBE AND CATHETER LEFT IN PLACE AND KHUSHI PRITCHARD. REPORT GIVEN TO RN AT [facility].
--- NOTE | 2019-02-17 18:17 | NUR ---
Spiritual Care routine visit: Lula was awake and alone in room. She is very slow to speak and does not appear to be able to say more than one or two words at a time. She said, "Help me" but was unable to tell me how I could help her. She also asked "why?" She denies pain. She kept pinching the skin around her neck as we spoke. She denied itching or irritation. There was a large, red patch of skin across most of her neck. Staff came in to prepare Lula for her transfer and visit ended. She did allow me to pray for her before I left.
== END 2019-02-17 15:22 | DRG 698 ==
LOC: ER 20:27 → MEDS 23:34
PROVIDERS: Emergency Medicine; Family Medicine; Hospitalist; Internal Medicine Gastroenterology; Internal Medicine Nephrology; ADMIT Family Medicine
DX: T83.511A Infection and inflammatory reaction due to indwelling urethral catheter, initial encounter (principal); G82.50 Quadriplegia, unspecified; G92 Toxic encephalopathy; I63.9 Cerebral infarction, unspecified; R47.01 Aphasia; D62 Acute posthemorrhagic anemia; I10 Essential (primary) hypertension; R13.12 Dysphagia, oropharyngeal phase; I48.91 Unspecified atrial fibrillation; Z95.0 Presence of cardiac pacemaker; Z99.3 Dependence on wheelchair; D50.0 Iron deficiency anemia secondary to blood loss (chronic); E87.6 Hypokalemia; I69.320 Aphasia following cerebral infarction; I69.365 Other paralytic syndrome following cerebral infarction, bilateral; Z86.718 Personal history of other venous thrombosis and embolism; Z79.01 Long term (current) use of anticoagulants; E03.9 Hypothyroidism, unspecified; J44.9 Chronic obstructive pulmonary disease, unspecified; B96.4 Proteus (mirabilis) (morganii) as the cause of diseases classified elsewhere
CPT/HCPCS: 36415; 36430; 70450; 70496; 71046; 76536; 80048; 80053; 80069; 81001; 81050; 82607; 82728; 82746; 82947; 83540; 83550; 83605; 83735; 84100; 84156; 84443; 84478; 85014; 85018; 85025; 85045; 86850; 86900; 86901; 86923; 87040; 87077; 87086; 87186; 92523; 92526; 92610; 93005; 93010; 96365; 96367; 97110; 97162; 97166; 97530; 99285-25; C1751; C1769; J0456; J0696; J1100; J1650; J1885; J1940; J2060; J2405; J2704; J2916; J3480; J7030; J7040; J7050; J7060; J7120; P9016; P9046; Q9967